=== PATIENT | female | born 1940 | race Native Hawaiian/Other Pacific Islander ===

== ENCOUNTER 2018-08-20 16:46 | Emergency (ER) | payer OTHER ==
[~2018-08-20] VITALS: Ht 157.5 cm; Wt 81.6 kg
[2018-08-20 17:46] LABS: PLATELET COUNT 232 K/uL (152-353)
[2018-08-20 17:54] LABS: POTASSIUM 3.9 mmol/L (3.6-5.2)
[2018-08-20 19:15] VITALS: BP 151/79; TEMP 97.5
[2018-08-20] MEDS ORDERED: POLYETH GLYC3350 N1 PO (21:26)
[2018-08-20] MEDS ORDERED: LIPITOR10 MG PO (21:27)
[2018-08-20] MEDS ORDERED: MULTIVITAMIN AD1 TAB PO (21:28)
[2018-08-20] MEDS ORDERED: FURO20TA67 PO (21:28)
[2018-08-20] MEDS ORDERED: AMLODIPINE BESYLATE PO (21:29)
[2018-08-20] MEDS ORDERED: NAMZARIC PO (21:29)
[2018-08-20] MEDS ORDERED: RISP1TAB PO (21:30)
[2018-08-20] MEDS ORDERED: LEVO0.1T6 PO (21:31)
[2018-08-20] MEDS ORDERED: RANI150T78 PO (21:32)
[2018-08-20] MEDS ORDERED: DOCU100C10 PO (21:32)
[2018-08-20] MEDS ORDERED: PRO-STAT PO (21:33)
[2018-08-20] MEDS ORDERED: TRAMADOL HYDROC50 MG PO (21:34)
[2018-08-20] MEDS ORDERED: RISP0.25 PO (21:34)
[2018-08-20] MEDS ORDERED: ENAL10TA PO (21:34)
== END 2018-08-20 19:15 | disposition other institution (70) ==
LOC: ED 16:46
PROVIDERS: Emergency Medicine
DX: F28 Other psychotic disorder not due to a substance or known physiological condition (principal); Z04.6 Encounter for general psychiatric examination, requested by authority
CPT/HCPCS: 36415; 80053; 85027; 93005; 99285